=== PATIENT | male | born 1990 ===

== ENCOUNTER 2021-04-18 12:56 | Observation (INO) ==
[2021-04-18 18:51] LABS: ABS Basophils 0.1 10^3/ul (0-0.2); ABS Eosinophils 0.2 10^3/ul (0-0.6); ABS Lymphocytes 2.9 10^3/ul (1.0-4.8); ABS Monocytes 0.6 10^3/ul (0-0.8); ABS Neutrophils 4.3 10^3/ul (1.5-7.7); Eosinophil % 1.9 %; Hematocrit 44 % (42-52); Hemoglobin 14.3 g/dL (14.0-18.0); Lymphocyte % 36.1 %; Mean Corpuscular HGB Conc 33 g/dL (31-36); Mean Corpuscular Hemoglobin 27 pg (27-31); Mean Corpuscular Volume 82 fL (80-94); Mean Platelet Volume 9.1 fL (7.4-10.4); Nucleated Red Blood Cells % 0.1; Platelet Count 200 10^3/uL (150-450); Red Blood Count 5.39 10^6 /uL (4.18-5.48); Red Cell Distribution Width 13 % (10-15)
[2021-04-18 19:08] LABS: Albumin 4.4 g/dL (3.2-5.2); Albumin/Globulin Ratio 1.5 (1-3); C Reactive Protein 48.44 mg/L (<8.01); Calcium 8.8 mg/dL (8.6-10.3); EGFR African American 101.3 (>60); EGFR Non-African American 83.7 (>60); Globulin 2.9 g/dL (2-4); Potassium 3.8 mmol/L (3.5-5.0); Total Bilirubin 0.6 mg/dL (0.2-1.0); Total Protein 7.3 g/dL (6.4-8.9)
[2021-04-18] MEDS ORDERED: Iohexol 300 (CONTRAST) 10 ML SDV IV ONE (19:14)
[2021-04-18 19:29] LABS: Urine Appearance Clear; Urine Bilirubin Negative (Negative); Urine Blood Negative (Negative); Urine Color Yellow; Urine Glucose Negative (Negative); Urine Ketones Negative (Negative); Urine Nitrite Negative (Negative); Urine Protein Negative (Negative); Urine Specific Gravity 1.016 (1.002-1.030); Urine Urobilinogen Negative (Negative)
[2021-04-18] MEDS ORDERED: Piperacillin/Tazobac ADVAN 3.375 GM in NS 0.9% 100 ml BAG 100 ML IV ONE (20:36)
[2021-04-18] MEDS ORDERED: Ondansetron 4 mg VIAL 2 MG/ML 2 ml VIAL IV ONE (20:43)
[2021-04-18] MEDS ORDERED: Ondansetron 4 mg VIAL 2 MG/ML 2 ml VIAL IV PRN (21:10)
[2021-04-18] MEDS ORDERED: HYDROmorphone 0.5 MG/0.5 ML SYRINGE IV SLOW PU PRN (21:37)
[2021-04-18] MEDS: NS 0.9% 1000 ml BAG 1,000 ML IV SCH (23:47)
[2021-04-19] MEDS ORDERED: Piperacillin/Tazobactam VIAL 3.375 GM in NS 0.9% 100 ml BAG 100 ML IVPB SCH (01:00)
[2021-04-19] MEDS: NS 0.9% 1000 ml BAG 1,000 ML IV SCH ×2 (04:54→05:03)
[2021-04-19] MEDS ORDERED: Buffered Lidocaine 1% SYRIN 1 ml INTRADERM ONE (09:21)
[2021-04-19] MEDS ORDERED: Famotidine IV 10 MG/ML 2 ml VIAL (20 mg) IV ONE (09:21)
[2021-04-19] MEDS ORDERED: Lactated Ringers 1000 ml BAG 1,000 ML IV SCH (10:00)
[2021-04-19] MEDS ORDERED: Famotidine IV 10 MG/ML 2 ml VIAL (20 mg) ONE (11:02)
[2021-04-19] MEDS ORDERED: Lidocaine 2% PF 5 ML VIAL ONE (11:33)
[2021-04-19] MEDS ORDERED: Ketamine HCL 50 mg/ml 10 ml VIAL (500 MG) ONE (11:33)
[2021-04-19] MEDS ORDERED: Propofol 10 MG/ML 20 ML BTL ONE (11:33)
[2021-04-19] MEDS ORDERED: fentaNYL 100 mcg/2 ml 50 MCG/ML VIAL ONE ×2 (11:33→13:34)
[2021-04-19] MEDS ORDERED: Midazolam 5 mg/5 ml VIAL 1 mg/ml 5 ml VIAL (5 mg) ONE (11:33)
[2021-04-19] MEDS ORDERED: Ondansetron 4 mg VIAL 2 MG/ML 2 ml VIAL ONE ×2 (11:33→15:35)
[2021-04-19] MEDS ORDERED: Rocuronium 50 mg VIAL 10 mg/ml 5 ml VIAL (50 mg) ONE ×2 (11:33→12:17)
[2021-04-19] MEDS ORDERED: Dexamethasone IV 4 MG/ML VIAL 1 ml VIAL ONE (11:33)
[2021-04-19] MEDS ORDERED: Bupivacaine 0.25% EPI 200,000 30 ML SDV ONE (11:52)
[2021-04-19] MEDS ORDERED: Ondansetron 4 mg VIAL 2 MG/ML 2 ml VIAL IV PRN (12:47)
[2021-04-19] MEDS ORDERED: Naloxone 0.4 mg VIAL 0.4 mg/ml 1 ml VIAL IV PRN (12:47)
[2021-04-19] MEDS ORDERED: DiMENhydriNATE IV 50 mg/ml 1 ml VIAL IV PUSH PRN (12:47)
[2021-04-19] MEDS ORDERED: Acetaminophen IV 1 GM/100ML 100 ML IV ONE (12:50)
[2021-04-19] MEDS: fentaNYL 100 mcg/2 ml 50 MCG/ML VIAL IV PRN ×2 (13:35→13:52)
[2021-04-19] MEDS ORDERED: DiMENhydriNATE IV 50 mg/ml 1 ml VIAL ONE (15:57)
[2021-04-19 16:28] VITALS: BP 109/68
[2021-04-22] MEDS ORDERED: Scopolamine PATCH Remove NOTE PATCH OFF ONE (09:21)
== END 2021-04-19 16:28 | disposition home or self-care (01) ==
LOC: SSU 12:56 → ED 12:56
PROVIDERS: ADMIT Surgery Surgical Critical Care; ATTEND Pediatrics